=== PATIENT | female | born 1995 | race Hispanic/Latino ===

== ENCOUNTER 2021-04-16 13:10 | Emergency (ER) | payer OTHER ==
[~2021-04-16] VITALS: Ht 172.7 cm; Wt 64.5 kg
[2021-04-16 18:17] LABS: BASO # 0.1 10^3/uL (0.0-0.2); BASO % 0.7 % (0.0-1.0); EOS # 0.2 10^3/uL (0.0-0.5); EOS % 1.9 % (0.0-3.0); HEMATOCRIT 40.8 % (36.0-47.0); HEMOGLOBIN 13.4 g/dl (12.0-15.5); LYMPH # 2.1 10^3/uL (1.5-5.0); LYMPH % 24.5 % (24.0-44.0); MEAN CORPUSCULAR HEMOGLOBIN 33.1 pg (27.0-33.0); MEAN CORPUSCULAR HGB CONC 32.8 g/dl (32.0-36.5); MEAN CORPUSCULAR VOLUME 100.7 fl (80.0-96.0); MONO # 0.6 10^3/uL (0.0-0.8); MONO % 6.5 % (2.0-8.0); NEUTROPHILS # 5.6 10^3/uL (1.5-8.5); PLATELET COUNT, AUTOMATED 259 10^3/uL (150-450); RED BLOOD COUNT 4.05 10^6/uL (4.00-5.40); WHITE BLOOD COUNT 8.5 10^3/uL (4.0-10.0)
[2021-04-16] MEDS ORDERED: IBUPROFEN 800 MG TAB PO ONE (18:25)
[2021-04-16] MEDS ORDERED: BACT800T5 PO (18:43)
[2021-04-16] MEDS ORDERED: VALA1TAB5 PO (18:43)
[2021-04-16] MEDS ORDERED: BACTRIM 160MG/800MG DS TAB PO ONE (18:50)
[2021-04-16] MEDS ORDERED: valACYclovir HCL 500 MG TAB PO ONE (18:50)
[2021-04-16 18:56] VITALS: BP 116/56
[2021-04-16 19:44] LABS: GC DNA AMPLIFICATION NEGATIVE (NEGATIVE)
[2021-04-16 21:14] LABS: HEPATITIS B SURFACE ANTIBODY POSITIVE (POSITIVE); HEPATITIS B SURFACE ANTIGEN NEGATIVE (NEGATIVE); HEPATITIS C VIRUS ABY INDEX < 0.0 INDEX (<0.8); HIV 1&2 SCREEN CENTAUR NEGATIVE (NEGATIVE)
== END 2021-04-16 18:58 | disposition home or self-care (01) ==
LOC: M ED 13:10
DX: L73.9 Follicular disorder, unspecified (principal)

== ENCOUNTER 2021-04-22 11:09 | Emergency (ER) | payer OTHER ==
[~2021-04-22] VITALS: Ht 172.7 cm; Wt 63.9 kg
[~2021-04-22 11:09] MED LIST: BACT800T5 PO; VALA1TAB5 PO
[2021-04-22] MEDS ORDERED: LIDOCAINE W/EPINEPHRINE 1% 20ML VIAL SC ONE (16:30)
[2021-04-22] MEDS ORDERED: KETOROLAC TROMETHAMINE 10 MG TAB PO ONE (16:30)
[2021-04-22] MEDS ORDERED: DOXY-443 PO (16:57)
[2021-04-22 17:02] VITALS: BP 118/68
== END 2021-04-22 17:19 | disposition home or self-care (01) ==
LOC: M ED 11:09
DX: L02.412 Cutaneous abscess of left axilla (principal); L02.415 Cutaneous abscess of right lower limb; F17.290 Nicotine dependence, other tobacco product, uncomplicated; Z79.899 Other long term (current) drug therapy

== ENCOUNTER 2021-12-23 09:51 | Emergency (ER) | payer OTHER ==
[~2021-12-23] VITALS: Ht 172.7 cm; Wt 67.0 kg
[2021-12-23 09:51] VITALS: BP 109/59
[~2021-12-23 09:51] MED LIST changes: +DOXY-443 PO
[2021-12-23] MEDS ORDERED: NS 1,000 ML IV ONE (11:05)
[2021-12-23] MEDS ORDERED: KETOROLAC 30 MG/ML 1ML VIAL IV ONE (11:05)
[2021-12-23 11:11] LABS: BASO % 0.4 % (0.0-1.0); EOS # 0.1 10^3/uL (0.0-0.5); EOS % 0.6 % (0.0-3.0); HEMOGLOBIN 12.5 g/dl (12.0-15.5); LYMPH # 1.5 10^3/uL (1.5-5.0); LYMPH % 14.2 % (24.0-44.0); MEAN CORPUSCULAR HGB CONC 32.9 g/dl (32.0-36.5); MEAN CORPUSCULAR VOLUME 100.3 fl (80.0-96.0); MONO # 0.7 10^3/uL (0.0-0.8); MONO % 6.6 % (2.0-8.0); NEUTROPHILS # 7.9 10^3/uL (1.5-8.5); NEUTROPHILS % 77.8 % (36.0-66.0); PLATELET COUNT, AUTOMATED 217 10^3/uL (150-450); RED BLOOD COUNT 3.79 10^6/uL (4.00-5.40); WHITE BLOOD COUNT 10.2 10^3/uL (4.0-10.0)
[2021-12-23 11:39] LABS: ALBUMIN 3.9 GM/DL (3.2-5.2); BILIRUBIN,DIRECT 0.1 MG/DL (0.0-0.2); BILIRUBIN,TOTAL 0.6 MG/DL (0.2-1.0); TOTAL PROTEIN 7.1 GM/DL (6.4-8.2)
[2021-12-23] MEDS ORDERED: cefTRIAXone SOD 1 GM in D5W MINI-BAG PLUS 50 ML IV ONE (12:15)
[2021-12-23] MEDS ORDERED: CEFD300CAP PO (13:59)
== END 2021-12-23 14:16 | disposition home or self-care (01) ==
LOC: M ED 09:51
DX: N10 Acute pyelonephritis (principal)
CPT/HCPCS: 74176; 80047; 80076; 81001; 84702; 85025; 87088; 87186; 96361; 96365; 96375; 99283; J0696; J1885

== ENCOUNTER 2022-11-18 21:22 | Emergency (ER) | payer OTHER ==
[~2022-11-18] VITALS: Ht 172.7 cm; Wt 74.2 kg
[~2022-11-18 21:22] MED LIST changes: +CEFD300CAP PO
[2022-11-18] MEDS ORDERED: ACET-683 PO (21:37)
[2022-11-18] MEDS ORDERED: GUAI100L6 PO (21:37)
[2022-11-19 01:23] LABS: RSV AMPLIFICATION NEGATIVE (NEGATIVE)
[2022-11-19] MEDS ORDERED: BENZ200C70 PO (01:37)
[2022-11-19] MEDS ORDERED: ALBU6.7H6 INH (01:37)
[2022-11-19 01:47] VITALS: BP 130/64
== END 2022-11-19 02:04 | disposition home or self-care (01) ==
LOC: M ED 21:22
DX: J06.9 Acute upper respiratory infection, unspecified (principal); Z79.52 Long term (current) use of systemic steroids; Z79.1 Long term (current) use of non-steroidal anti-inflammatories (NSAID)

== ENCOUNTER 2023-02-22 14:56 | Emergency (ER) | payer OTHER ==
[~2023-02-22] VITALS: Ht 172.7 cm; Wt 73.5 kg
[~2023-02-22 14:56] MED LIST changes: +ACET-683 PO; +ALBU6.7H6 INH; +BENZ200C70 PO; +GUAI100L6 PO
[2023-02-22 18:09] VITALS: BP 108/60; TEMP 98; O2SAT 100
== END 2023-02-22 18:11 | disposition home or self-care (01) ==
LOC: M ED 14:56
DX: S60.221A Contusion of right hand, initial encounter (principal); X58.XXXA Exposure to other specified factors, initial encounter; Y99.1 Military activity; F17.290 Nicotine dependence, other tobacco product, uncomplicated; Z79.899 Other long term (current) drug therapy